=== PATIENT | female | born 1955 | race Caucasian/White ===

== ENCOUNTER → 2016-08-28 | Outpatient (CLI) | payer OTHER ==
[2015-03-16 11:17] VITALS: BP 123/73
[~2016-08-28] MED LIST: CIPR500T94 PO; FLUT10.6 INH; FURO40TA4 PO; INSU100I17 SQ; INSU100V8 SQ; LEVO200V9 IV; LEVO75TA PO; LISI2.5T PO; LORA0.5T PO; SPIR50TA2 PO; TOBR5DRO13 LEFTEYE
--- NOTE | 2016-08-28 11:48 | RAD ---
Exam performed: Complete abdominal ultrasound. History: Cholelithiasis, ascites. Date of service: 08/28/16. Comparison: None available Technique: Real-time grayscale imaging of the complete abdomen is performed and images are obtained. Findings: The liver demonstrates nodular contour consistent with cirrhosis. It measures 14.1 cm in length. There is no focal lesions. No intra or extrahepatic biliary ductal dilatation is seen. Common bile measures 3.4 mm. Cholelithiasis with evidence of gallbladder wall thickening which measures up to 4.0 mm. Bilateral kidneys appear normal. The right kidney measures 11.3 x 4.5 x 4.9 cm the left kidney measures 12.2 x 5.4 x 5.7 cm. Splenomegaly. Spleen measures 13.7 cm in length. The pancreas is normal. Doppler evaluation of the IVC and aorta due to overlying bowel gas. There is moderate ascites. Note is made of recanalized umbilical vein. Impression: 1. Cirrhosis with splenomegaly and findings consistent with portal hypertension. 2. Moderate ascites. 3. Cholelithiasis with gallbladder wall thickening. Given the presence of ascites, the significance of this finding is not clear. Correlate clinically for acute cholecystitis.
== END | disposition home or self-care (01) ==
LOC: US 10:46
PROVIDERS: ATTEND General Practice
DX: K80.20 Calculus of gallbladder without cholecystitis without obstruction (principal); K74.60 Unspecified cirrhosis of liver; K76.6 Portal hypertension; K80.00 Calculus of gallbladder with acute cholecystitis without obstruction; R16.1 Splenomegaly, not elsewhere classified
CPT/HCPCS: 76700

== ENCOUNTER → 2016-11-02 | Outpatient (CLI) | payer OTHER ==
[2015-03-16 11:17] VITALS: BP 123/73
--- NOTE | 2016-11-02 15:43 | RAD ---
EXAM: Chest 2 views. HISTORY: Productive cough. COMPARISON: 03/09/2016. FINDINGS: Frontal and lateral views of the chest are obtained. Linear opacities in both bases appear chronic and most likely indicate atelectasis/scarring. There are no confluent infiltrates. There is no pneumothorax or pleural effusion. The heart is not enlarged. There are chronic right anteroinferior rib fractures. IMPRESSION: 1. Mild basilar atelectasis/scarring. No confluent infiltrates.
== END | disposition home or self-care (01) ==
LOC: DXRADRC 15:22
PROVIDERS: ATTEND General Practice
DX: R05 Cough (principal); R06.02 Shortness of breath
CPT/HCPCS: 71020

== ENCOUNTER → 2016-12-29 | Outpatient (CLI) | payer OTHER ==
[2015-03-16 11:17] VITALS: BP 123/73
--- NOTE | 2016-12-29 14:10 | RAD ---
Chest, 2 views, 12/29/2016: History: Shortness of breath Comparison is made to a study from 11/02/2016. The heart is at the upper limits of normal in size. The pulmonary vascularity is within normal limits. There are unchanged linear basilar opacities suggesting scarring. No pulmonary consolidation is seen. There is no evidence of pleural fluid. Mild spurring is present in the spine. IMPRESSION: 1. Mild bibasilar linear scarring. 2. No acute cardiopulmonary abnormality is detected.
== END | disposition home or self-care (01) ==
LOC: DXRADRC 13:52
PROVIDERS: ATTEND Nurse Practitioner Family
DX: J98.4 Other disorders of lung (principal)
CPT/HCPCS: 71020

== ENCOUNTER 2017-11-19 02:40 | Emergency (ER) | payer OTHER ==
[~2017-11-19] VITALS: Ht 162.6 cm; Wt 88.9 kg
[~2017-11-19 02:40] MED LIST changes: -SPIR50TA2 PO; +SPIR50TA4 PO
--- NOTE | 2017-11-19 04:05 | RAD ---
INDICATION: Altered mental status, confusion COMPARISON: None. TECHNIQUE: Axial CT images obtained through the head without intravenous contrast. One or more of the following individualized dose reduction techniques were utilized for this examination: 1. Automated exposure control; 2. Adjustment of the mA and/or kV according to patient size; 3. Use of iterative reconstruction technique. FINDINGS: No intracranial hemorrhage. No midline shift. Basal cisterns patents. Ventricles and sulci are globally prominent. No acute osseous abnormality. Orbits and paranasal sinuses unremarkable. Scattered foci of low attenuation within the white matter. IMPRESSION: 1. No acute intracranial hemorrhage. 2. Scattered regions of low attenuation within the white matter. Non-specific in nature but frequently secondary to chronic small vessel ischemic disease. 3. Prominence of ventricles and sulci which is frequently secondary to age related volume loss. Electronically signed by: Kev Stock MD (11/19/2017 4:02 AM) [facility]
[2017-11-19 04:31] LABS: BASO % 0 % (0-3); EOS # 0.1 x10^3/uL (0.0-0.7); EOS % 1 % (0-3); HEMATOCRIT 32.6 % (36.0-47.0); HEMOGLOBIN 10.6 g/dL (12.0-15.5); LYMPH # 0.5 x10^3/uL (1.0-4.8); LYMPH % 5 % (24-48); MEAN CORPUSCULAR HEMOGLOBIN 26 pg (25-35); MEAN CORPUSCULAR HGB CONC 33 g/dL (31-37); MEAN CORPUSCULAR VOLUME 81 fL (79-100); MONO # 0.9 x10^3/uL (0.0-1.1); MONO % 9 % (0-9); NEUT # 8.7 x10^3uL (1.8-7.7); NEUT % 85 % (31-73); PLATELET COUNT 219 x10^3/uL (140-400); RED BLOOD COUNT 4.01 x10^6/uL (3.50-5.40); RED CELL DISTRIBUTION WIDTH 20.6 % (11.5-14.5); WHITE BLOOD COUNT 10.2 x10^3/uL (4.0-11.0)
[2017-11-19 04:45] LABS: ALBUMIN 2.9 g/dL (3.4-5.0); ALBUMIN/GLOBULIN RATIO 0.6 (1.0-1.7); CALCIUM 10.1 mg/dL (8.5-10.1); CREATININE 1.9 mg/dL (0.6-1.0); GFR 26.9; POTASSIUM 5.4 mmol/L (3.5-5.1); TOTAL BILIRUBIN 0.8 mg/dL (0.2-1.0); TOTAL PROTEIN 7.9 g/dL (6.4-8.2)
--- NOTE | 2017-11-19 04:56 | ED.ADGEN ---
Past History Past Medical History: Arthritis, Diabetes, Hepatitis, Liver Disease, Other Past Surgical History: Hysterectomy, Tonsillectomy, Other Smoking: Cigarettes, Less than 1pk/day Alcohol Use: None Drug Use: None Adult General Chief Complaint Chief Complaint Altered mental status [facility] HPI Patient is a 62-year-old female with history of chronic liver disease, ascites, pancreatitis who presents with increased confusion over the past 2 days. Patient does report follow-up home and hitting her head yesterday. Denies headache, neck pain, nausea, vomiting bleeding. No other symptoms or complaints. History is limited as patient is confused. Recent hospital admission at [facility] for liver related illness. Patient arrives by EMS[] Review of Systems Review of Systems ROS as per HPI All other systems were reviewed and found to be within normal limits, except as documented in this note. Allergies Allergies Allergies Coded Allergies Type Severity Reaction Last Updated Verified Cephalexin Monohydrate Allergy Severe swelled up bad. 07/27/13 Yes Sulfa (Sulfonamide Antibiotics) Allergy Intermediate TONGUE SWELLS 05/17/13 Yes niacin Allergy Intermediate Flush/hives 05/17/13 Yes Physical Exam Physical Exam Constitutional: Well developed, well nourished, chronically ill appearing. [] HENT: Normocephalic, atraumatic, bilateral external ears normal, oropharynx moist, nose normal. [] Eyes: PERRLA, EOMI, conjunctiva normal, no discharge. [] Neck: Normal range of motion, no tenderness. [] Cardiovascular:Heart rate regular rhythm, no murmur [] Lungs & Thorax: Bilateral breath sounds clear to auscultation [] Abdomen: Bowel sounds normal, soft, ascitiis. [] Skin: Warm, dry, no erythema, no rash. [] Back: No tenderness. [] Extremities: No tenderness, no edema. [] Neurologic: Alert and oriented, normal motor function, normal sensory function, no focal deficits noted. [] Psychologic: Affect, flat. [] Current Patient Data Vital Signs Vital Signs Date Time Temp Pulse Resp B/P (MAP) Pulse Ox O2 Delivery O2 Flow Rate FiO2 11/19/17 04:20 94 24 122/89 (100) 100 Room Air 11/19/17 02:50 97.9 Lab Results Laboratory Tests Test 11/19/17 04:15 White Blood Count 10.2 x10^3/uL (4.0-11.0) Red Blood Count 4.01 x10^6/uL (3.50-5.40) Hemoglobin 10.6 g/dL (12.0-15.5) L Hematocrit 32.6 % (36.0-47.0) L Mean Corpuscular Volume 81 fL (79-100) Mean Corpuscular Hemoglobin 26 pg (25-35) Mean Corpuscular Hemoglobin Concent 33 g/dL (31-37) Red Cell Distribution Width 20.6 % (11.5-14.5) H Platelet Count 219 x10^3/uL (140-400) Neutrophils (%) (Auto) 85 % (31-73) H Lymphocytes (%) (Auto) 5 % (24-48) L Monocytes (%) (Auto) 9 % (0-9) Eosinophils (%) (Auto) 1 % (0-3) Basophils (%) (Auto) 0 % (0-3) Neutrophils # (Auto) 8.7 x10^3uL (1.8-7.7) H Lymphocytes # (Auto) 0.5 x10^3/uL (1.0-4.8) L Monocytes # (Auto) 0.9 x10^3/uL (0.0-1.1) Eosinophils # (Auto) 0.1 x10^3/uL (0.0-0.7) Basophils # (Auto) 0.0 x10^3/uL (0.0-0.2) Platelet Estimate Pending Sodium Level 133 mmol/L (136-145) L Potassium Level 5.4 mmol/L (3.5-5.1) H Chloride Level 104 mmol/L (98-107) Carbon Dioxide Level 17 mmol/L (21-32) L Anion Gap 12 (6-14) Blood Urea Nitrogen 47 mg/dL (7-20) H Creatinine 1.9 mg/dL (0.6-1.0) H Estimated GFR (Cockcroft-Gault) 26.9 BUN/Creatinine Ratio 25 (6-20) H Glucose Level 166 mg/dL (70-99) H Calcium Level 10.1 mg/dL (8.5-10.1) Total Bilirubin 0.8 mg/dL (0.2-1.0) Aspartate Amino Transferase (AST) 43 U/L (15-37) H Alanine Aminotransferase (ALT) 36 U/L (14-59) Alkaline Phosphatase 189 U/L (46-116) H Ammonia 198 mcmol/L (11-34) H Total Protein 7.9 g/dL (6.4-8.2) Albumin 2.9 g/dL (3.4-5.0) L Albumin/Globulin Ratio 0.6 (1.0-1.7) L Lipase 980 U/L (73-393) H Ethyl Alcohol Level < 10 mg/dL (0-10) EKG EKG [EKG: Reviewed] Radiology/Procedures Radiology/Procedures [CT head: No acute disease per radiology report Chest x-ray: No definite infiltrate] Course & Med Decision Making Course & Med Decision Making Pertinent Labs and Imaging studies reviewed. (See chart for details) [Hepatic encephalopathy and abnl lipase. No abdominal pain. Will transfer to [facility] for further evaluation and treatment with anticipated GI consult.] Final Impression Final Impression [1. Hepatic encephalopathy 2. Elevated lipase] Dragon Disclaimer Dragon Disclaimer This electronic medical record was generated, in whole or in part, using a voice recognition dictation system. VIRGILIO ANDREW DO Nov 19, 2017 04:56
[2017-11-19 05:36] LABS: ANISOCYTOSIS MOD; HYPOCHROMIA SLIGHT; PLT ESTIMATE ADEQUATE (ADEQUATE); POLYCHROMASIA SLIGHT; SPHEROCYTES OCC
[2017-11-19 05:37] LABS: OVALOCYTES OCC; SCHISTOCYTES OCC
[2017-11-19 05:45] VITALS: BP 123/62
--- NOTE | 2017-11-19 07:40 | EKG ---
[address] [address] Test Date: 2017-11-19 Test Time: 04:19:54 Pat Name: JOÃO EASTON Department: Room: Gender: F Negative Turner Apprentice: : 1955 Requested By: VIRGILIO ANDREW Order Number: [id number] Reading MD: Measurements Intervals [place] Rate: 92 P: 48 ME: 150 QRS: 51 QRSD: 80 T: 13 QT: 354 QTc: 443 Interpretive Statements SINUS RHYTHM QRS(T) CONTOUR ABNORMALITY CONSIDER ANTEROSEPTAL MYOCARDIAL DAMAGE POSSIBLY ABNORMAL ECG RI6.01 Unconfirmed report No previous ECG available for comparison
--- NOTE | 2017-11-19 07:59 | RAD ---
Portable chest, 11/19/2017: HISTORY: Chest pain Comparison is made to a study from 12/29/2016. The heart size and pulmonary vascularity are normal. There appears to be minimal right basilar scarring. No pulmonary infiltrate is seen. There is no evidence of pleural fluid. IMPRESSION: No acute cardiopulmonary abnormality is detected. Electronically signed by: Demar Pearson MD (11/19/2017 7:55 AM) [facility]
== END 2017-11-19 06:06 | disposition short-term general hospital (02) ==
LOC: ER 02:40
DX: K72.90 Hepatic failure, unspecified without coma (principal); R74.8 Abnormal levels of other serum enzymes; M19.90 Unspecified osteoarthritis, unspecified site; E11.9 Type 2 diabetes mellitus without complications; F17.210 Nicotine dependence, cigarettes, uncomplicated; Z88.1 Allergy status to other antibiotic agents; Z88.2 Allergy status to sulfonamides
CPT/HCPCS: 36415; 70450; 71045; 80053; 82140; 83690; 85025; 93005; 99285; G0480

== ENCOUNTER 2017-11-21 13:40 | Emergency (ER) | payer OTHER ==
[~2017-11-21] VITALS: Ht 162.6 cm; Wt 95.7 kg
[2017-11-21] MEDS: IV NORMAL SALINE 1,000ML 1,000 ML IV SCH (13:49)
--- NOTE | 2017-11-21 13:54 | PHYS DOC ---
Past History Past Medical History: Arthritis, Diabetes, Hepatitis, Liver Disease, Other Past Surgical History: Hysterectomy, Tonsillectomy, Other Smoking: Cigarettes, Less than 1pk/day Alcohol Use: None Drug Use: None Adult General Chief Complaint Chief Complaint: low blood sugar HPI HPI Patient is a [62] year old [female] who is in by EMS because of low blood sugar and altered level of consciousness. EMS reported that patient had blood sugar of 53 and because of lack of IV line treated with IM glucagon with increase of blood sugar to 103 without significant change in level of consciousness. Patient is agitated at arrival to ER and screaming and cussing without answering the question or following commands. According to EMR patient was admitted at [facility] between November 06 to November 17 and discharged home. Patient was seen in this emergency room on November 19 and transferred to [facility] with ammonia level of 193 but patient was sent home the same day. Review of Systems Review of Systems Unable to obtain because of altered level of consciousness Allergies Allergies Allergies Coded Allergies Type Severity Reaction Last Updated Verified Cephalexin Monohydrate Allergy Severe swelled up bad. 07/27/13 Yes Sulfa (Sulfonamide Antibiotics) Allergy Intermediate TONGUE SWELLS 05/17/13 Yes niacin Allergy Intermediate Flush/hives 05/17/13 Yes Physical Exam Physical Exam Constitutional: Moderate distress, non-toxic appearance, agitated and uncooperative with limited exam [] HENT: Normocephalic, atraumatic Eyes: PERRLA, EOMI, conjunctiva normal, no discharge. [] Neck: Normal range of motion, no tenderness, supple, no stridor. [] Cardiovascular: Tachycardia, no murmur [] Lungs & Thorax: Bilateral breath sounds clear to auscultation [] Abdomen: Moderate abdominal distention with fluid and gas without tenderness Skin: Warm, dry, no erythema, no rash. [] Back: No tenderness, no CVA tenderness. [] Extremities: No tenderness, no cyanosis, no clubbing, ROM intact, no edema. [] Neurologic: Awake but somnolent, agitated, moving all extremities, limited exam because of altered level of consciousness Psychologic: Agitated, unable to evaluate EKG EKG EKG interpreted by me. EKG at 1426 showed sinus tachycardia at rate of 103, poor R-wave progress in anteroseptal leads, no acute ST and T-wave abnormalities [] Radiology/Procedures Radiology/Procedures [][address] [address] IMAGING REPORT Signed PATIENT: JOÃO EASTON ACCOUNT: [id number] : 1955 LOCATION: ER AGE: 62 SEX: F EXAM STATUS: REG ER ORD. PHYSICIAN: MARYBEL DINERO MD REASON: ALOC PROCEDURE: PORTABLE CHEST 1V EXAM: CHEST 1 VIEW History: Weakness, to status change COMPARISON: 11/19/2017 TECHNIQUE: Single portable radiograph of the chest FINDINGS: The cardiac silhouette is unremarkable. The lungs are clear bilaterally. The costophrenic sulci are clear and well demarcated. IMPRESSION: No radiographic evidence of an acute cardiopulmonary process. Electronically signed by: Rusty Yanez MD (11/21/2017 4:12 PM) [facility] DICTATED AND SIGNED BY: RUSTY YANEZ MD DATE: 11/21/17 1611 CC: GOGO VOGEL DO; MARYBEL DINERO MD ~ [address] [address] IMAGING REPORT Signed PATIENT: JOÃO EASTON ACCOUNT: [id number] : 1955 LOCATION: ER AGE: 62 SEX: F EXAM STATUS: REG ER ORD. PHYSICIAN: MARYBEL DINERO MD REASON: ALOC PROCEDURE: CT HEAD WO CONTRAST CT HEAD INDICATION: mental status change, pt motion COMPARISON: None Available. TECHNIQUE: 5 mm contiguous axial images were obtained from the skull base to the vertex in both bone and soft tissue algorithm. Exposure: One or more of the following individualized dose reduction techniques were utilized for this examination: 1. Automated exposure control 2. Adjustment of the mA and/or kV according to patient size 3. Use of iterative reconstruction technique FINDINGS: Mild bilateral periventricular white matter hypodensities likely chronic small vessel ischemic disease. No evidence of acute intracranial hemorrhage. No extra-axial fluid collections. No mass effect or midline shift. Ventricular size is appropriate. Basal cisterns are patent. No fractures identified.Cooney-white differentiation is preserved.Globes and orbits are within normal limits. Paranasal sinuses and mastoid air cells are clear. IMPRESSION: No acute intracranial findings. Electronically signed by: Rusty Yanez MD (11/21/2017 4:11 PM) [facility] DICTATED AND SIGNED BY: RUSTY YANEZ MD DATE: 11/21/17 9752 CC: GOGO VOGEL DO; MARYBEL DINERO MD ~ Course & Med Decision Making Course & Med Decision Making Pertinent Labs and Imaging studies reviewed. (See chart for details) Evaluation of patient in ER showed 62-year-old female patient brought in because of hypoglycemia. Patient had blood sugar of 102 at arrival to ER with agitation and blood pressure of 88/54 and tachycardia without fever. Patient had history of hepatic encephalopathy in her previous emergency room visit 2 days ago. Patient had a monitor 11 of 293. Patient treated with IV fluid and her blood pressure increased to 100. Patient had elevation of lactic acid of 2.8 and treated with antibiotic. Dr. Cloud accepted transfer to [facility] at 1603. Lactulose enema was not started in the emergency room because of transferring to [facility] before insertion of rectal tube and starting lactulose enema. Dragon Disclaimer Dragon Disclaimer This electronic medical record was generated, in whole or in part, using a voice recognition dictation system. Departure Departure: Impression: Primary Impression: Acute hepatic encephalopathy Additional Impressions: Altered level of consciousness Hypoglycemia Anemia Renal insufficiency Sepsis Disposition: 02 XFER [facility] HOSP ([facility] at 1604) Condition: GUARDED Referrals: GOGO VOGEL DO (PCP) Critical Care Time Critical care time was [100] minutes exclusive of procedures. Problem Qualifiers MARYBEL DINERO MD Nov 21, 2017 13:54
[2017-11-21 14:19] LABS: BGAS PH 7.44 (7.35-7.45)
[2017-11-21 14:26] LABS: BASO # 0.1 x10^3/uL (0.0-0.2); BASO % 0 % (0-3); EOS # 0.1 x10^3/uL (0.0-0.7); EOS % 1 % (0-3); HEMATOCRIT 32.1 % (36.0-47.0); HEMOGLOBIN 10.3 g/dL (12.0-15.5); LYMPH # 0.4 x10^3/uL (1.0-4.8); LYMPH % 3 % (24-48); MEAN CORPUSCULAR HEMOGLOBIN 26 pg (25-35); MEAN CORPUSCULAR HGB CONC 32 g/dL (31-37); MEAN CORPUSCULAR VOLUME 82 fL (79-100); MONO # 0.9 x10^3/uL (0.0-1.1); MONO % 6 % (0-9); NEUT # 13.5 x10^3uL (1.8-7.7); NEUT % 90 % (31-73); PLATELET COUNT 242 x10^3/uL (140-400); RED BLOOD COUNT 3.92 x10^6/uL (3.50-5.40); RED CELL DISTRIBUTION WIDTH 21.6 % (11.5-14.5)
--- NOTE | 2017-11-21 14:29 | EKG ---
[address] [address] Test Date: 2017-11-21 Test Time: 14:26:55 Pat Name: JOÃO EASTON Department: Room: Gender: F Transition Advisor: : 1955 Requested By: MARYBEL DINERO Order Number: [id number] Reading MD: Measurements Intervals [place] Rate: 103 P: 60 [place]: 146 QRS: 62 QRSD: 78 T: 40 QT: 346 QTc: 455 Interpretive Statements SINUS TACHYCARDIA QRS(T) CONTOUR ABNORMALITY CONSIDER INFERIOR MYOCARDIAL DAMAGE POSSIBLY ABNORMAL ECG RI6.01 Unconfirmed report Compared to ECG 03/15/2015 03:52:29 Sinus rhythm no longer present
[2017-11-21 14:52] LABS: ALBUMIN 2.8 g/dL (3.4-5.0); ALBUMIN/GLOBULIN RATIO 0.6 (1.0-1.7); CALCIUM 9.6 mg/dL (8.5-10.1); CREATININE 1.9 mg/dL (0.6-1.0); GFR 26.9; POTASSIUM 4.5 mmol/L (3.5-5.1); TOTAL BILIRUBIN 0.8 mg/dL (0.2-1.0); TOTAL PROTEIN 7.8 g/dL (6.4-8.2)
[2017-11-21 15:08] LABS: ANISOCYTOSIS SLIGHT; HYPOCHROMIA SLIGHT; OVALOCYTES OCC; PLT ESTIMATE ADEQUATE (ADEQUATE); POLYCHROMASIA SLIGHT; SCHISTOCYTES OCC; SPHEROCYTES OCC
[2017-11-21] MEDS ORDERED: PIPERACILLIN/TAZOBACTAM 3.375 GM in IV NORMAL SALINE 50ML 50 ML IV ONE (15:30)
[2017-11-21] MEDS ORDERED: IV DEXTROSE 10% 1,000 ML IV ONE (16:00)
[2017-11-21] MEDS ORDERED: IV NORMAL SALINE 50ML 50 ML ONE (16:08)
[2017-11-21] MEDS ORDERED: PIPERACILLIN/TAZOBACTAM 3.375 GM VIAL IV ONE (16:09)
--- NOTE | 2017-11-21 16:15 | RAD ---
EXAM: CHEST 1 VIEW History: Weakness, to status change COMPARISON: 11/19/2017 TECHNIQUE: Single portable radiograph of the chest FINDINGS: The cardiac silhouette is unremarkable. The lungs are clear bilaterally. The costophrenic sulci are clear and well demarcated. IMPRESSION: No radiographic evidence of an acute cardiopulmonary process. Electronically signed by: Rusty Naranjo MD (11/21/2017 4:12 PM) [facility]
--- NOTE | 2017-11-21 16:15 | RAD ---
CT HEAD INDICATION: mental status change, pt motion COMPARISON: None Available. TECHNIQUE: 5 mm contiguous axial images were obtained from the skull base to the vertex in both bone and soft tissue algorithm. Exposure: One or more of the following individualized dose reduction techniques were utilized for this examination: 1. Automated exposure control 2. Adjustment of the mA and/or kV according to patient size 3. Use of iterative reconstruction technique FINDINGS: Mild bilateral periventricular white matter hypodensities likely chronic small vessel ischemic disease. No evidence of acute intracranial hemorrhage. No extra-axial fluid collections. No mass effect or midline shift. Ventricular size is appropriate. Basal cisterns are patent. No fractures identified.Cooney-white differentiation is preserved.Globes and orbits are within normal limits. Paranasal sinuses and mastoid air cells are clear. IMPRESSION: No acute intracranial findings. Electronically signed by: Rusty Naranjo MD (11/21/2017 4:11 PM) [facility]
[2017-11-21 17:10] VITALS: BP 117/58
== END 2017-11-21 17:10 | disposition short-term general hospital (02) ==
LOC: ER 13:40
DX: A41.9 Sepsis, unspecified organism (principal); K72.00 Acute and subacute hepatic failure without coma; R41.82 Altered mental status, unspecified; E11.649 Type 2 diabetes mellitus with hypoglycemia without coma; D64.9 Anemia, unspecified; N28.9 Disorder of kidney and ureter, unspecified; M19.90 Unspecified osteoarthritis, unspecified site; F17.210 Nicotine dependence, cigarettes, uncomplicated; Z88.1 Allergy status to other antibiotic agents; Z88.2 Allergy status to sulfonamides
CPT/HCPCS: 36415; 36600; 70450; 71045; 80053; 82140; 82553; 82803; 82947; 83605; 85025; 85610; 85730; 93005; 96361; 96365; 99291; 99292; G0480; J2543; J7030

== ENCOUNTER → 2018-01-12 | Outpatient (CLI) | payer OTHER ==
[2018-01-12 14:52] LABS: BASO % 0 % (0-3); EOS # 0.1 x10^3/uL (0.0-0.7); EOS % 1 % (0-3); HEMATOCRIT 24.8 % (36.0-47.0); HEMOGLOBIN 8.1 g/dL (12.0-15.5); LYMPH # 0.5 x10^3/uL (1.0-4.8); LYMPH % 7 % (24-48); MEAN CORPUSCULAR HEMOGLOBIN 28 pg (25-35); MEAN CORPUSCULAR HGB CONC 33 g/dL (31-37); MEAN CORPUSCULAR VOLUME 86 fL (79-100); MONO # 0.8 x10^3/uL (0.0-1.1); MONO % 12 % (0-9); NEUT % 79 % (31-73); PLATELET COUNT 154 x10^3/uL (140-400); RED BLOOD COUNT 2.88 x10^6/uL (3.50-5.40); RED CELL DISTRIBUTION WIDTH 18.9 % (11.5-14.5); WHITE BLOOD COUNT 6.4 x10^3/uL (4.0-11.0)
== END | disposition home or self-care (01) ==
LOC: OPINF 14:22
PROVIDERS: ATTEND General Practice
DX: D64.9 Anemia, unspecified (principal); E11.649 Type 2 diabetes mellitus with hypoglycemia without coma; M19.90 Unspecified osteoarthritis, unspecified site; Z87.891 Personal history of nicotine dependence
CPT/HCPCS: 36415; 85025